=== PATIENT | female | born 1955 | race Caucasian/White ===

== ENCOUNTER 2021-09-23 12:46 | Emergency (ER) | payer BC, MEDICARE ==
[~2021-09-23] VITALS: Ht 157.4 cm; Wt 83.0 kg
[2021-09-23 13:40] LABS: HEMATOCRIT 25.1 % (37.0-47.0); MEAN CELL VOLUME 91.6 fl (81.0-99.0); MEAN CORPUSCULAR HGB 28.5 pg (27.0-31.0); MEAN CORPUSCULAR HGB CONC 31.1 g/dl (33.0-37.0); MEAN PLATELET VOLUME 9.1 fl (9.6-12.3); PLATELET COUNT AUTOMATED 316 10*3/uL (130-400); RED BLOOD COUNT 2.74 10*6/uL (4.10-5.10); RED CELL DISTRI WIDTH 15.1 % (0-14.5); WHITE BLOOD COUNT 32.3 10*3/uL (4.8-10.8)
[2021-09-23 13:41] LABS: MANUAL DIFF REFLEX YES
[2021-09-23 13:57] LABS: CREATININE 1.45 mg/dL (0.55-1.02); POTASSIUM 4.1 mmol/L (3.5-5.1)
[2021-09-23 13:59] LABS: TOTAL CELLS COUNTED 100 #CELLS
[2021-09-23 14:00] LABS: PLATELET SUFFICIENCY NORMAL (NORMAL)
[2021-09-23 14:01] LABS: TOXIC GRANULATION SLIGHT; VACUOLATION OF NEUTROPHILS SLIGHT
[2021-09-23 14:02] LABS: POLYCHROMASIA SLIGHT
[2021-09-23 17:05] LABS: BILIRUBIN 1+ (Negative); BLOOD Trace-Intact (Negative); CLARITY Cloudy (Clear); COLOR Dark Yellow (Yellow); GLUCOSE Negative (Negative); KETONE Trace (Negative); LEUKO ESTERASE 1+ (Negative); NITRITE Negative (Negative); SPECIFIC GRAVITY 1.015 (1.001-1.030)
[2021-09-23 17:18] LABS: BACTERIA 3+; EPITHELIAL CELLS 31-40
== END 2021-09-24 01:35 | disposition short-term general hospital (02) ==
LOC: ED 12:46
PROVIDERS: Physician Assistant
DX: A41.9 Sepsis, unspecified organism (principal); Z20.822 Contact with and (suspected) exposure to COVID-19; R65.20 Severe sepsis without septic shock; A48.0 Gas gangrene; L03.115 Cellulitis of right lower limb; N17.9 Acute kidney failure, unspecified; E87.1 Hypo-osmolality and hyponatremia; D64.9 Anemia, unspecified; M86.8X6 Other osteomyelitis, lower leg; E43 Unspecified severe protein-calorie malnutrition